=== PATIENT | male | born 1990 | race Caucasian/White ===

== ENCOUNTER → 2025-10-12 06:51 | Outpatient (CLI) | payer OTHER, SELFPAY ==
--- NOTE | 2025-10-12 06:53 | DI.MRI.S_ITS ---
PROCEDURE: MR LUMBAR SPINE WO CON INDICATIONS: low back pain TECHNIQUE: Noncontrast sagittal T1 spin echo and T2 fast echo, sagittal STIR, and T2 fast spin echo through the lumbar spine. In cases with scoliosis, additional coronal T2 fast spin echo may be performed. COMPARISON: None. FINDINGS: Image quality: Excellent. Alignment and Curvature: There is normal bony alignment. Bone Marrow: Marrow is of normal overall signal. No acute vertebral body compression fractures. Spinal Cord: Conus medullaris terminates at the T12-L1 level. Visualized cord demonstrates normal signal and size. Paraspinous Soft Tissues: No paravertebral masses. T12-L1: Normal appearance. L1-L2: Disc bulge. No canal stenosis or foraminal stenosis. L2-L3: No canal stenosis or foraminal stenosis. L3-L4: Congenitally short pedicles. Disc bulge. Mild facet hypertrophy. Epidural lipomatosis. No significant canal stenosis. No foraminal stenosis. L4-L5: Congenitally short pedicles. Annulus tear plus disc bulge. Facet and ligament hypertrophy. Moderate canal stenosis. Mild bilateral foraminal stenosis. L5-S1: Suspect possible previous left hemilaminotomy. Annulus tear plus disc bulge. No significant canal stenosis. Moderate bilateral foraminal stenosis. IMPRESSION: 1. Underlying congenitally short pedicles and facet arthropathy. 2. Annulus tears plus disc bulges at L4-L5 and L5-S1. 3. Moderate canal stenosis at L4-L5. 4. Moderate bilateral foraminal narrowing at L5-S1. Dictated by: Jake Escobar M.D. on 10/12/2025 at 9:50 Approved by: Jake Escobar M.D. on 10/12/2025 at 9:54
== END ==
LOC: MRI 06:53
DX: M47.816 Spondylosis without myelopathy or radiculopathy, lumbar region (principal); M48.061 Spinal stenosis, lumbar region without neurogenic claudication; M48.07 Spinal stenosis, lumbosacral region; M51.360 Other intervertebral disc degeneration, lumbar region with discogenic back pain only; M51.370 Other intervertebral disc degeneration, lumbosacral region with discogenic back pain only
CPT/HCPCS: 72148